=== PATIENT | female | born 1940 | race Caucasian/White ===

== ENCOUNTER 2019-01-28 22:41 | Emergency (ER) | payer MEDICARE, BC ==
[2019-01-28] MEDS ORDERED: Morphine 4 MG/ML VIAL ONE ×2 (22:53→23:35)
[2019-01-28] MEDS ORDERED: Ondansetron PF 4 MG/2 ML Vial ONE ×2 (22:53→23:35)
[2019-01-28 23:16] LABS: #Basophils 0.2 thou/uL (0.0-0.2); #Eosinphils 0.3 thou/uL (0.0-0.7); #Lymphocytes 4.2 thou/uL (1.20-3.40); #Neutrophils 3.7 thou/uL (1.40-6.50); %Basophils 1.7 % (0.0-1.0); %Eosinophils 3.6 % (0.0-10.0); %Lymphocytes 45.1 % (21.0-51.0); %Monocytes 10.1 % (0.0-10.0); %Neutrophils 39.6 % (42.0-75.0); Bilirubin Negative (Negative); Blood, Urine Negative (Negative); Clarity Slightly Cloudy (Clear); Glucose, Urine (Dipstick) Negative (Negative); Hemoglobin 14.8 g/dL (12.0-16.0); Leukocyte Small (Negative); Mean Corpuscular HGB CONC 32.7 g/dL (32.0-36.0); Mean Corpuscular Hemoglobin 29.4 pg (27.0-31.0); Mean Corpuscular Volume 90.1 fL (78.0-98.0); Mean Platelet Volume 5.8 fL (7.4-10.4); Nitrite Negative (Negative); Platelet Count 272 thou/uL (130-400); Protein, Urine (Dipstick) Negative (Neg-Trace); RBC Distribution Width 11.9 % (11.5-14.5); Red Blood Cell (RBC) Count 5.02 mill/uL (4.20-5.40); Urobilinogen 0.2 mg/dL (Less than 2); White Blood Cell (WBC) Count 9.4 thou/uL (4.8-10.8)
[2019-01-28 23:21] LABS: Bacteria/HPF 3+ HPF (None Seen); Squamous Epithelial 0-3 HPF (0-3)
[2019-01-28 23:24] LABS: ALT (SGPT) 26 U/L (8-55); AST (SGOT) 20 U/L (5-34); Albumin 4.4 g/dL (3.4-4.8); Alkaline Phosphatase 81 U/L (40-150); Anion Gap 15 mmol/L (10-20); BUN (Urea Nitrogen) 18 mg/dL (9.8-20.1); Bilirubin, Total 0.4 mg/dL (0.2-1.2); Calc. Creatinine Clearance 0 mL/min (70-130); Calcium 9.9 mg/dL (7.8-10.44); Carbon Dioxide 27 mmol/L (23-31); Chloride 106 mmol/L (98-107); Estimated GFR-MDRD 65; Globulin 2.8 g/dL (2.4-3.5); Glucose 105 mg/dL (83-110); Protein, Total 7.2 g/dL (6.0-8.3); Sodium 144 mmol/L (136-145)
[2019-01-28 23:25] LABS: D-Dimer Test 0.37 *mcg/mL (0.27-0.43); INR-International Normal Ratio 1.1; PTT 30.7 SEC (22.9-36.1); Prothrombin Time 13.9 SEC (12.0-14.7)
[2019-01-29 03:25] LABS: Hemoglobin 13.9 g/dL (12.0-16.0); Mean Corpuscular Volume 93.2 fL (78.0-98.0); Red Blood Cell (RBC) Count 4.69 mill/uL (4.20-5.40); White Blood Cell (WBC) Count 21.5 thou/uL (4.8-10.8)
[2019-01-29 03:26] LABS: D-Dimer Test 0.75 *mcg/mL (0.27-0.43); INR-International Normal Ratio 1.3; Mean Corpuscular HGB CONC 31.8 g/dL (32.0-36.0); Mean Corpuscular Hemoglobin 29.6 pg (27.0-31.0); Mean Platelet Volume 5.7 fL (7.4-10.4); PTT 30.1 SEC (22.9-36.1); Platelet Count 264 thou/uL (130-400); Prothrombin Time 15.8 SEC (12.0-14.7); RBC Distribution Width 12.2 % (11.5-14.5)
[2019-01-29] MEDS ORDERED: Crotalidae Polyvalent Antivenin 1 GM VIAL ONE (03:47)
[2019-01-29 03:56] LABS: CKMB 3.8 ng/mL (0-6.6)
== END 2019-01-29 04:20 | disposition short-term general hospital (02) ==
LOC: BURERS 22:41
DX: T63.091A Toxic effect of venom of other snake, accidental (unintentional), initial encounter (principal); E78.5 Hyperlipidemia, unspecified; I10 Essential (primary) hypertension; Z79.899 Other long term (current) drug therapy
CPT/HCPCS: 80053; 82553; 84484; 85025; 85027; 85379; 85384; 85610; 85730; 93005; J0840; 36415; 81003; 81015; 96361; 96374; 96375; 96376; J2270; J2405